=== PATIENT | female | born 2000 | race Caucasian/White ===

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

== ENCOUNTER 2023-09-27 12:43 | Emergency (ER) | payer BC, MEDICAID | END 2023-09-27 13:52 | disposition home or self-care (01) | LOC: MW.ED 12:43 | DX: K08.89 Other specified disorders of teeth and supporting structures (principal) | CPT/HCPCS: 99282; 99283 ==

== ENCOUNTER 2023-12-13 21:53 | Emergency (ER) | payer MEDICAID ==
[2023-12-13 22:30] LABS: HEMATOCRIT 37.1 % (37.0-47.0); HEMOGLOBIN 12.5 g/dL (12.0-16.0); MEAN CORPUSCULAR HGB CONC 33.7 g/dL (32.0-36.0); MEAN CORPUSCULAR VOLUME 89.2 fL (83.0-99.0); MEAN PLATELET VOLUME 10.9 fL (9.4-12.3); PLATELET COUNT,PLT 241 K/uL (150-400); RED BLOOD CELL COUNT 4.16 M/uL (4.10-5.30); WHITE BLOOD CELL COUNT,WBC 6.61 K/uL (3.9-11.3)
[2023-12-13] MEDS: Ondansetron 4 MG Tab.DIS PO ONE (22:34)
[2023-12-13] MEDS: Acetaminophen/HYDROcodone 325-5 MG Tab PO ONE (22:34)
[2023-12-13] MEDS: Lidocaine 4% 1 each Patch TOP STA (22:34)
[2023-12-13] MEDS: Acetaminophen 500 MG Tab PO ONE (22:35)
[2023-12-13 22:44] LABS: INR 1.04 (0.86-1.11); PTT,PARTIAL THROMBOPLSTIN TIME 28.6 SEC (23.9-30.7)
[2023-12-13 22:45] LABS: CALCIUM 8.7 mg/dL (8.5-10.1); CARBON DIOXIDE,CO2 23.9 mmol/L (21.0-32.0); CREATININE 0.9 mg/dL (0.6-1.0); EST CRCL DRUG DOSING (CG) 92.56 mL/min; POTASSIUM,K 3.6 mmol/L (3.5-5.1)
== END 2023-12-13 23:59 | disposition home or self-care (01) ==
LOC: MW.ED 21:53
DX: S70.01XA Contusion of right hip, initial encounter (principal); W19.XXXA Unspecified fall, initial encounter
CPT/HCPCS: 36415; 80048; 85027; 85610; 85730; 99283; A9270

== ENCOUNTER 2024-03-02 17:00 | Emergency (ER) | payer MEDICAID ==
[2024-03-02 17:50] LABS: APPEARANCE,URINE CLEAR; BILIRUBIN,URINE NEGATIVE (NEGATIVE); COLOR,URINE YELLOW; GLUCOSE,URINE NEGATIVE (NEGATIVE); KETONES,URINE TRACE mg/dL (NEGATIVE); LEUKOCYTE ESTERASE,URINE NEGATIVE (NEGATIVE); NITRITE,URINE NEGATIVE (NEGATIVE); OCCULT BLOOD,URINE NEGATIVE (NEGATIVE); PROTEIN,URINE NEGATIVE (NEGATIVE); UROBILINOGEN,URINE 0.2 EU/dL (<2.0)
[2024-03-02 18:47] LABS: CANDIDA DNA PROBE NEGATIVE (NEGATIVE); GARDNERELLA DNA PROBE POSITIVE (NEGATIVE); TRICHOMONAS DNA PROBE NEGATIVE (NEGATIVE)
[2024-03-02 18:56] LABS: BASOPHILS ABSOLUTE AUTO 0.06 K/uL (0.00-0.20); BASOPHILS PERCENT AUTO 0.8 % (0.0-1.0); EOSINOPHILS ABSOLUTE AUTO 0.02 K/uL (0.00-0.45); EOSINOPHILS PERCENT AUTO 0.3 % (0.0-6.0); HEMATOCRIT 35.5 % (37.0-47.0); HEMOGLOBIN 11.6 g/dL (12.0-16.0); IMMATURE GRAN ABSOLUTE AUTO 0.01 K/uL (0.00-0.05); IMMATURE GRAN PERCENT AUTO 0.1 % (0.0-0.4); LYMPHOCYTES ABSOLUTE AUTO 2.04 K/uL (1.00-4.80); LYMPHOCYTES PERCENT AUTO 26.2 % (24.0-44.0); MEAN CORPUSCULAR HEMOGLOBIN 29.8 pg (28.0-32.0); MEAN CORPUSCULAR HGB CONC 32.7 g/dL (32.0-36.0); MEAN CORPUSCULAR VOLUME 91.3 fL (83.0-99.0); MEAN PLATELET VOLUME 11.1 fL (9.4-12.3); MONOCYTES ABSOLUTE AUTO 0.45 K/uL (0.00-0.80); MONOCYTES PERCENT AUTO 5.8 % (0.0-8.0); NEUTROPHILS ABSOLUTE AUTO 5.22 K/uL (1.80-7.70); NEUTROPHILS PERCENT AUTO 66.8 % (41.0-71.0); PLATELET COUNT,PLT 242 K/uL (150-400); RED BLOOD CELL COUNT 3.89 M/uL (4.10-5.30)
[2024-03-02 19:17] LABS: C. TRACHOMATIS BY PCR DETECTED; N. GONORRHOEAE BY PCR NOT DETECTED
[2024-03-02 19:18] LABS: A/G RATIO 1.2 (0.9-1.6); ALBUMIN 4.1 g/dL (3.4-5.0); BILIRUBIN TOTAL 0.7 mg/dL (0.2-1.0); CALCIUM 8.9 mg/dL (8.5-10.1); CARBON DIOXIDE,CO2 26.3 mmol/L (21.0-32.0); CREATININE 0.9 mg/dL (0.6-1.0); EST CRCL DRUG DOSING (CG) 96.15 mL/min; PROTEIN TOTAL,TP 7.5 g/dL (6.4-8.2)
[2024-03-02] MEDS: Lidocaine 1% PF 2 ML SDV INJECT ONE (20:06)
[2024-03-02] MEDS: Doxycycline 100 MG Cap PO ONE (20:06)
[2024-03-02] MEDS: cefTRIAXone 500 MG Vial IM ONE (20:06)
[2024-03-02] MEDS: metroNIDAZOLE 250 MG Tab PO ONE (20:06)
== END 2024-03-02 20:32 | disposition home or self-care (01) ==
LOC: MW.ED 17:00
DX: A56.02 Chlamydial vulvovaginitis (principal); Z79.899 Other long term (current) drug therapy; Z75.8 Other problems related to medical facilities and other health care
CPT/HCPCS: 36415; 80053; 81003; 81025; 85025; 87480; 87491; 87510; 87591; 87660; 96372; 99284; A9270; J0696; J3490

== ENCOUNTER 2025-02-07 20:15 | Inpatient (IN) | payer MEDICAID ==
[2025-02-07] MEDS ORDERED: Butorphanol 1 MG/ML SDV IVPUSH PRN (21:41)
[2025-02-07] MEDS ORDERED: Tranexamic Acid in NACL,ISO-OS 1,000 MG in Premix Bag 1 BAG IV PRN (21:41)
[2025-02-07] MEDS ORDERED: Methylergonovine 0.2 MG/1 ML Amp IM PRN (21:41)
[2025-02-07] MEDS ORDERED: Sodium Chloride 0.9% 20 ML SDV IV PRN (21:41)
[2025-02-07] MEDS ORDERED: Lidocaine 1% 50 ML MDV INJECT PRN (21:41)
[2025-02-07] MEDS ORDERED: Water For Irrigation,Sterile 1,000 ML Container IRR PRN (21:41)
[2025-02-07] MEDS ORDERED: Sodium Chloride 0.9% 10 ML Syringe FLUSH PRN (21:41)
[2025-02-07] MEDS ORDERED: Terbutaline 1 MG/ML SDV SUBCUT PRN (21:41)
[2025-02-07] MEDS ORDERED: Ondansetron 4 MG/2 ML SDV IVPUSH PRN (21:41)
[2025-02-07] MEDS ORDERED: Sodium Chloride 0.9% 2.5 ML Syringe FLUSH PRN (21:41)
[2025-02-07] MEDS ORDERED: Misoprostol 200 MCG Tab RECTAL PRN (21:41)
[2025-02-07] MEDS ORDERED: Carboprost Tromethamine 250 MCG/1 mL Vial IM PRN (21:41)
[2025-02-07] MEDS ORDERED: Lactated Ringers 1,000 ML IV SCH (21:45)
[2025-02-07] MEDS ORDERED: Oxytocin/0.9 % Sodium Chloride 30 UNIT/500 ML BAG IV SCH ×2 (21:45)
[2025-02-07 22:59] LABS: HEMATOCRIT 35.2 % (37.0-47.0); HEMOGLOBIN 11.8 g/dL (12.0-16.0); MEAN CORPUSCULAR HEMOGLOBIN 29.4 pg (28.0-32.0); MEAN CORPUSCULAR HGB CONC 33.5 g/dL (32.0-36.0); MEAN CORPUSCULAR VOLUME 87.8 fL (83.0-99.0); MEAN PLATELET VOLUME 11.7 fL (9.4-12.3); PLATELET COUNT,PLT 178 K/uL (150-400); RED BLOOD CELL COUNT 4.01 M/uL (4.10-5.30)
[2025-02-07] MEDS: Misoprostol 25 MCG (1/4 of 100 MCG) Tab VAG PRN (23:10)
[2025-02-08] MEDS: Misoprostol 25 MCG (1/4 of 100 MCG) Tab VAG PRN (04:32)
[2025-02-08] MEDS: Ropivacaine HCl/PF 200 ML ONE (17:05)
[2025-02-08] MEDS ORDERED: Phenylephrine HCl In 0.9% NaCl 1 MG/10 ML Syringe IVPUSH PRN (17:12)
[2025-02-08] MEDS ORDERED: ePHEDrine 50 MG/ML SDV IVPUSH PRN (17:12)
[2025-02-08] MEDS ORDERED: dexmedeTOMIDine HCl 200 MCG/2 ML SDV EPIDUR SCH (17:15)
[2025-02-08] MEDS ORDERED: Ropivacaine HCl/PF 400 MG in Premix Bag 1 BAG EPIDUR SCH (17:15)
[2025-02-08] MEDS ORDERED: Measles, Mumps & Rubella Vaccine 0.5 ML SDV SUBCUT ONE (19:34)
[2025-02-08] MEDS ORDERED: Ibuprofen 800 MG Tab PO PRN (19:34)
[2025-02-08] MEDS ORDERED: oxyCODONE 5 MG Tab PO PRN (19:34)
[2025-02-08 19:57] LABS: PH,UMBILICAL ARTERIAL 7.308 (7.18-7.38); PH,UMBILICAL VENOUS 7.381 (7.25-7.45)
[2025-02-08] MEDS: Witch Hazel Medicated Pads 40/Jar TOP PRN (22:13)
[2025-02-08] MEDS: Benzocaine/Menthol 20%-0.5% Spray 78 GM Cannister TOP PRN (22:14)
[2025-02-08] MEDS: Lanolin 100% Cream 7 GM Tube TOP PRN (22:14)
[2025-02-09 06:07] LABS: HEMATOCRIT 32.9 % (37.0-47.0); HEMOGLOBIN 11.1 g/dL (12.0-16.0)
[2025-02-09] MEDS: Acetaminophen 500 MG Tab PO PRN (07:23)
[2025-02-09] MEDS: Bupivacaine 0.5% 10 ML SDV ONE (09:19)
[2025-02-09] MEDS: Phenylephrine HCl In 0.9% NaCl 1 MG/10 ML Syringe ONE (09:20)
[2025-02-09] MEDS: dexmedeTOMIDine HCl 200 MCG/2 ML SDV ONE (09:20)
[2025-02-09] MEDS: Docusate Sodium 100 MG Cap PO PRN (16:03)
== END 2025-02-10 10:40 | disposition home or self-care (01) | DRG 807 ==
LOC: MW.OB 20:15 → OBSVTOIN 02-08 19:19 → MW.OB 02-09 00:49
PROVIDERS: ADMIT Obstetrics & Gynecology; ATTEND Obstetrics & Gynecology
PROC: 10E0XZZ Delivery of Products of Conception, External Approach (ICD-10-PCS; principal; 2025-02-08)
PROC: 3E0R3BZ Introduction of Anesthetic Agent into Spinal Canal, Percutaneous Approach (ICD-10-PCS; 2025-02-08)
PROC: 3E0DXGC Introduction of Other Therapeutic Substance into Mouth and Pharynx, External Approach (ICD-10-PCS; 2025-02-08)
PROC: 3E033VJ Introduction of Other Hormone into Peripheral Vein, Percutaneous Approach (ICD-10-PCS; 2025-02-08)
DX: O70.0 First degree perineal laceration during delivery (principal); Z37.0 Single live birth; Z3A.39 39 weeks gestation of pregnancy; Z79.899 Other long term (current) drug therapy
CPT/HCPCS: 01967; 36415; 59020; 59025; 59409; 82803; 85014; 85018; 85027; 86592; 86850; 86900; 86901; A9270-GY; J0665; J2795